=== PATIENT | female | born 1980 | race Hispanic/Latino ===

== ENCOUNTER 2023-11-08 12:09 | Emergency (ER) | payer SELFPAY ==
[2023-11-08] MEDS ORDERED: methylPREDNISolone Sod Succ/PF 125 MG/2 ML VIAL ONE (13:12)
[2023-11-08] MEDS ORDERED: Ipratropium Bromide 2.5 ml Neb ONE ×2 (13:13→15:50)
[2023-11-08] MEDS ORDERED: Albuterol 2.5 MG (3 mL) NEB ONE ×2 (13:13→15:49)
[2023-11-08 13:21] LABS: #Eosinphils 0.8 10x3/uL (0.0-0.5); #Monocytes 0.5 10x3/uL (0.0-1.1); #Neutrophils 10.3 10x3/uL (1.5-8.4); %Basophils 0.3 % (0.0-2.0); %Eosinophils 5.6 % (0.0-6.0); %Lymphocytes 15.4 % (18.0-47.0); %Monocytes 3.7 % (0.0-10.0); %Neutrophils 74.7 % (40.0-75.0); Hematocrit 31.7 % (34.9-44.5); Hemoglobin 9.1 g/dL (12.0-15.5); Mean Corpuscular HGB CONC 28.7 g/dL (32.0-36.0); Mean Corpuscular Hemoglobin 19.3 pg (27.0-33.0); Mean Corpuscular Volume 67.2 fl (81.6-98.3); Mean Platelet Volume 9.3 fl (7.4-10.4); Platelet Count 429 10x3/uL (150-450); RBC Distribution Width 17.2 % (11.5-14.5); Red Blood Cell (RBC) Count 4.72 10x6/uL (3.90-5.03); White Blood Cell (WBC) Count 13.7 10x3/uL (3.5-10.5)
[2023-11-08 13:31] LABS: ALT (SGPT) 13 U/L (8-55); AST (SGOT) 13 U/L (5-34); Albumin 3.8 g/dL (3.5-5.0); Alkaline Phosphatase 75 U/L (40-110); Anion Gap 13 mmol/L (10-20); BUN (Urea Nitrogen) 8 mg/dL (7.0-18.7); Bilirubin, Total 0.3 mg/dL (0.2-1.2); Calc. Creatinine Clearance 0 mL/min (70-130); Calcium 8.6 mg/dL (7.8-10.44); Carbon Dioxide 21 mmol/L (22-29); Chloride 107 mmol/L (98-107); Estimated GFR 104; Globulin 3.2 g/dL (2.4-3.5); Glucose 133 mg/dL (70-105); Potassium 4.1 mmol/L (3.5-5.1); Sodium 137 mmol/L (136-145)
[2023-11-08 13:40] LABS: Troponin I Less than 0.010 ng/mL (< 0.028)
[2023-11-08 14:21] LABS: SARS-CoV-2 NAA Rapid Test Not Detected (NotDetected)
[2023-11-08 14:33] LABS: Microcytosis MARKED = >30 cells (100X) (0-5/hpf)
[2023-11-08 14:36] LABS: Hypochromia SLIGHT = 6-15 cells (100X) (0-5/hpf); Stomatocytes SLIGHT = 2-5 cells (100X) (0-1/hpf)
== END 2023-11-08 16:25 | disposition home or self-care (01) ==
LOC: CSHERS 12:09
DX: J45.901 Unspecified asthma with (acute) exacerbation (principal)
CPT/HCPCS: 36415; 71045; 80053; 84484; 85025; 93005; 96374; J2930; J7611

== ENCOUNTER 2024-10-10 11:45 | Outpatient (CLI) | payer OTHER | END 2024-10-10 11:46 | disposition home or self-care (01) | LOC: CSHLAB 11:45 | PROVIDERS: ATTEND Surgery | DX: Z01.818 Encounter for other preprocedural examination (principal); K42.0 Umbilical hernia with obstruction, without gangrene | CPT/HCPCS: 93005; 93010 ==

== ENCOUNTER 2024-10-13 06:45 | Day surgery (SDC) | payer OTHER ==
[2024-10-10 13:03] VITALS: BMI 37.0
[2024-10-13] MEDS ORDERED: Bupivacaine HCl 0.5%/Epinephrine 1:200,000/PF 30 ml Vial ONE (08:17)
[2024-10-13] MEDS ORDERED: PROPOFOL 20 ML ONE (08:21)
[2024-10-13] MEDS ORDERED: Ondansetron PF 4 MG/2 ML Vial ONE (08:21)
[2024-10-13] MEDS ORDERED: Rocuronium Bromide 10 MG/ML (10ML VIAL) ONE (08:21)
[2024-10-13] MEDS ORDERED: Lidocaine 1% PF 5 ML VIAL ONE (08:21)
[2024-10-13] MEDS ORDERED: fentaNYL 50 mcg/mL 1 mL Vial ONE ×4 (08:21→10:33)
[2024-10-13] MEDS ORDERED: Clindamycin/D5W 600 mg/50 ml Premix Bag ONE (08:25)
[2024-10-13] MEDS ORDERED: Sevoflurane 250 ML INH ANEST BOTTLE ONE (09:34)
[2024-10-13] MEDS ORDERED: SUGAMMADEX SODIUM 200 MG/2 ML VIAL ONE (09:39)
[2024-10-13] MEDS ORDERED: HYDROcodone/Acetaminophen 5/325 mg Tablet ONE (10:55)
[2024-10-13] MEDS ORDERED: Ondansetron ODT 4 MG TAB ONE (11:29)
== END 2024-10-13 11:52 | disposition home or self-care (01) ==
LOC: CSHSDC 06:45
PROVIDERS: ATTEND Surgery
PROC: 0WUF4JZ Supplement Abdominal Wall with Synthetic Substitute, Percutaneous Endoscopic Approach (ICD-10-PCS; principal; 2024-10-13)
DX: K43.0 Incisional hernia with obstruction, without gangrene (principal); K42.0 Umbilical hernia with obstruction, without gangrene; K43.9 Ventral hernia without obstruction or gangrene; I10 Essential (primary) hypertension; F41.9 Anxiety disorder, unspecified; J45.909 Unspecified asthma, uncomplicated; M19.90 Unspecified osteoarthritis, unspecified site; Z98.51 Tubal ligation status; Z88.0 Allergy status to penicillin
CPT/HCPCS: A6258; C1781; J2405; J2704; J3010; J3490; Q0162; S2900